=== PATIENT | male | born 1955 | race Caucasian/White ===

== ENCOUNTER → 2017-05-22 | Outpatient (CLI) | payer BC ==
--- NOTE | 2017-05-23 07:44 | US ---
EXAMINATION TYPE: US prostate transrectal DATE OF EXAM: 05/22/2017 COMPARISON: NONE CLINICAL HISTORY: R97.2 elevated PSA. Nocturia also per technologist. This examination was performed using the transrectal probe. EXAM MEASUREMENTS: Gland Size: 5.4 x 3.7 x 5.6 cm Volume: 58.5 ml Predicted PSA: 7.0 Actual PSA (if available):3.3 Slight asymmetry of right BPH. No gross abnormalities Seminal vesicles are symmetric and slightly bulky towards beginning of exam. Prostate gland is hetero geneous in appearance and enlarged in size. No worrisome hypoechoic nodules are identified IMPRESSION: Prostate gland is enlarged in size consistent with BPH, no worrisome nodules are demonst rated.
== END | disposition home or self-care (01) ==
LOC: RADUSMAIN 07:53
PROVIDERS: ATTEND Nurse Practitioner Primary Care
DX: N40.0 Benign prostatic hyperplasia without lower urinary tract symptoms (principal)
CPT/HCPCS: 76872

== ENCOUNTER → 2023-02-04 | Outpatient (CLI) | payer MEDICARE, BC ==
[~2023-02-04] MED LIST: DOBUTamine DRIP for NUC MED 500 MG in DEXTROSE/WATER 1 250ML.BAG IV PRN
--- NOTE | 2023-02-05 07:34 | CA ---
Dobutamine Stress Echocardiogram Report Deandre Luke Age: 67 Gender: M : 1955 Exam Date: 02/04/2023 09:27 Exam Location: [facility] Ordering Physician: Jaron Kohli MD Referring Physician: Jaron Kohli MD [employer] Rater: Amee Bolden RDCS Technologist: Ht (in): 72 Wt (lb): 240 Procedure CPT: Indication: R94.31 ICD-9 Codes: Rhythm: Patient History: Cardiac Medications: OLMESARTAN,,,,,, MULTIVITAMIN,,,,,, FISH OIL,,,,,, TUMERIC,,,,, Medications in past 24 hours: Contrast: Total Dose (mL): Stress Results Protocol: Dobutamine Peak Dose (???g/kg/min): 30 Duration (min:sec): Atropine:(mg) Target HR: 132 Double Product: 22353 Resting HR: 71 Resting BP: 131 / 84 Peak HR: 140 Peak BP: 149 / 63 Max Predicted HR: 155 90 % Max Predicted HR Stress Summary: BP Response: Normal Reason for Termination: INFUSION COMPLETE,Target HR Cardiac Symptoms: NO SYMPTOMS ECG Analysis Resting EKG: Stress EKG: Arrhythmia: Echo Analysis Base Echo Analysis: Low Echo Anaylsis: Peak Echo Analysis: Recovery Echo: MEASUREMENTS (Male/Female) Normal Values CONCLUSIONS Normal EKG and echo in response to dobutamine Dr. David Gomez MD (Electronically Signed) Final Date: 05 February 2023 07:33
== END | disposition home or self-care (01) ==
LOC: RADNMMAIN 08:43
PROVIDERS: ATTEND Family Medicine
DX: R94.31 Abnormal electrocardiogram [ECG] [EKG] (principal)
CPT/HCPCS: 93351

== ENCOUNTER → 2024-07-20 | Outpatient (CLI) | payer MEDICARE, BC ==
[2024-07-20 09:55] LABS: African American GFR (CKD) >90 (>60 ml/min/1.73 sqM); Blood Urea Nitrogen 19 mg/dL (9-20); Non-African American GFR(CKD) 85 (>60 ml/min/1.73 sqM)
--- NOTE | 2024-07-20 10:45 | CT ---
EXAMINATION TYPE: CT abdomen w con CT DLP: 1614 mGycm, Automated exposure control for dose reduction was used. DATE OF EXAM: 07/20/2024 10:26 AM COMPARISON: None CLINICAL INDICATION:Male, 69 years old with history of K81.0 acute cholecystitis; RUQ pain,acute chol ecystitis TECHNIQUE: Standard CT of the abdomen following the administration of 100 cc of Isovue 370 IV contr ast material. Coronal and sagittal reformats were performed. FINDINGS: LOWER CHEST: Visualized lung bases are clear. Mildly prominent heart. ABDOMEN LIVER: Couple of cysts with largest in the inferior right hepatic lobe measuring up to 2.3 cm. GALLBLADDER AND BILE DUCTS: Unremarkable. No surrounding inflammatory changes or wall thickening iden tified. PANCREAS: Unremarkable. SPLEEN: Unremarkable. ADRENAL GLANDS: Unremarkable. KIDNEYS AND URETERS: No evidence of hydronephrosis or renal calculus. The kidneys enhance symmetrical ly. Right renal anterior mid kidney exophytic 1.5 cm cyst. There are left renal cysts with largest m easuring up to 2.0 cm. Contrast is demonstrated within both renal collecting systems on delayed phase . STOMACH AND BOWEL: Stomach and duodenum are unremarkable. No focal wall thickening or surrounding inf lammatory changes. Colonic diverticulosis. Enteric contrast reaches the mid small bowel. The appendix is within normal limits. No evidence of bowel obstruction. PERITONEUM: No evidence of pneumoperitoneum or free fluid. VASCULATURE: Mild atherosclerotic calcifications are present throughout the abdominal aorta and its b ranches. No evidence of aortic aneurysm. MUSCULOSKELETAL: No acute osseous abnormalities. Degenerative changes of both SI joints with anterior partial fusion. Remote ununited left posterior left eighth rib fracture. Grade 1 anterolisthesis of L4 and L5. No pars defect. DISH of the lower thoracic spine. Degenerative disc disease most pronounce d at L5-S1. Lower lumbar spine facet arthropathy. LYMPH NODES: No gross evidence for lymphadenopathy. SOFT TISSUE/ABDOMINAL WALL: Unremarkable IMPRESSION: No CT evidence for acute abdominal process. Gallbladder demonstrates unremarkable CT appearance. If t here is continued clinical concern, consider further evaluation with ultrasound. [facility], , 07/20/2024 10:42 AM
== END | disposition home or self-care (01) ==
LOC: RADCTMAIN 09:18
PROVIDERS: ATTEND Family Medicine
DX: K81.0 Acute cholecystitis (principal)
CPT/HCPCS: 36415; 74160; 82565; 84520